=== PATIENT | male | born 1945 ===

== ENCOUNTER 2017-08-01 05:45 | Day surgery (SDC) | payer OTHER ==
[~2017-08-01 05:45] MED LIST: INTESTINEX1 CA1 PO; PERCOCET 5/3251 TAB PO; PRILOSEC20 MG PO
== END 2017-08-01 09:25 | disposition home or self-care (01) ==
LOC: AMB-ENDOS 05:45
DX: K64.1 Second degree hemorrhoids (principal); K57.30 Diverticulosis of large intestine without perforation or abscess without bleeding